=== PATIENT | female | born 1955 | race Caucasian/White ===

== ENCOUNTER 2017-09-13 11:31 | Inpatient (IN) | payer OTHER ==
[2017-09-13] VITALS (7 sets, daily range): BP systolic 134–169; BP diastolic 66–107
[~2017-09-13] VITALS: Ht 152.4 cm; Wt 127.3 kg
--- NOTE | ~2017-09-13 | EKG ---
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
--- NOTE | ~2017-09-13 | EEG ---
[facility] [place] [address] ELECTROENCEPHALOGRAM Name: IAVN LOAIZA Room #: 216-P [facility] IN M.R.#: [id number] Admission: 09/13/17 Attend Phys: Phillip Carter MD Discharge: Date of : 59 Report #: [id number] THIS REPORT FOR: //name// CC: Rikki Carter DATE OF SERVICE: 09/16/2017 This patient's EEG is being done for comparison with the last EEG. Background activity in this patient is about 8 Hz and 30 microvolts. The patient went to sleep that is associated with bilaterally symmetrical sleep spindle and vertex sharp waves. Photic stimulation was unremarkable. There is much improvement in the patient's triphasic waves. IMPRESSION: Continuous improvement in the patient's encephalopathy and continue improvement in the patient's triphasic waves. That will be consistent with resolving encephalopathy. Clinical correlation is recommended. Thank you very much for this referral. <ELECTRONICALLY SIGNED> By: Murray Middleton MD 09/18/17 [id number] 0648 Murray Middleton MD /nt
--- NOTE | ~2017-09-13 | EKG ---
[address] [address] ELECTROCARDIOGRAM REPORT Name: IVAN LOAIZA Room #: 246-P ADM IN M.R.#: [id number] Admission: 09/13/17 Attend Phys: Phillip Carter MD Discharge: Date of : 59 Report #: [id number] THIS REPORT FOR: //name// 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 : 1955 Requested By: Phillip Carter Order Number: [id number] MD: Jose Antonio Mccormick Measurements Intervals [place] Rate: 126 P: 59 FL: 128 QRS: 47 QRSD: 72 T: 88 QT: 316 QTc: 458 Interpretive Statements Sinus tachycardia Probable left atrial enlargement Minimal ST depression, inferior leads Compared to ECG 09/13/2017 12:42:50 ST (T wave) deviation now present Electronically Signed On 09-14-2017 9:08:11 [employer] [employer] by Jose Antonio Mccormick [email or web address] <ELECTRONICALLY SIGNED> By: Jose Antonio Mccormick MD 09/14/17907 0 0 Jose Antonio Mccormick MD /EPI
--- NOTE | ~2017-09-13 | EEG ---
[facility] [place] [address] ELECTROENCEPHALOGRAM Name: IVAN LOAIZA Room #: 246-P ADM IN M.R.#: [id number] Admission: 09/13/17 Attend Phys: Phillip Carter MD Discharge: Date of : 59 Report #: [id number] THIS REPORT FOR: //name// CC: Rikki Carter DATE OF SERVICE: 09/15/2017 This patient is being evaluated for altered mental status. EEG was done by placing the electrodes by standard 10/20 system of electrode placement. Both referential and sequential montages were used for recording. Background activity in this patient's EEG is about 6 Hz and 30 microvolts. This background activity is intermixed with what appeared to be frontally predominant triphasic waves. Some of them do appear epileptiform. Photic stimulation is unremarkable. IMPRESSION: This is a severely abnormal EEG, which is typically happen with encephalopathy. Triphasic waves and possibly epileptiform activity is present. Thank you very much for this referral. <ELECTRONICALLY SIGNED> By: Murray Middleton MD 09/15/17 1817 1146 1217 Murray Middleton MD /nt
[2017-09-13 11:58] LABS: ABSOLUTE NEUTROPHILS 7.8 thou/uL (1.4-8.2); BASOPHILS 0.5 % (0.0-2.0); EOSINOPHILS 0.3 % (0.0-3.0); HEMATOCRIT 38.6 % (37.0-47.0); HEMOGLOBIN 12.7 gm/dL (12.0-15.0); LYMPHOCYTES 24.8 % (24.0-44.0); MCH 31.8 pg (26.0-34.0); MCHC 32.9 g/dL (28.0-37.0); MCV 96.8 fL (80.0-100.0); MONOCYTES 6.8 % (1.0-8.0); PLATELET COUNT 222 thou/uL (150-400); POLYS 67.6 % (36.0-66.0); RBC 3.99 mil/uL (4.20-5.00); RDW 14.9 % (10.5-14.5); WBC 11.6 thou/uL (4.0-11.0)
[2017-09-13 12:05] LABS: CALCIUM 8.3 mg/dL (8.5-10.1); POTASSIUM 4.4 mmol/L (3.5-5.1)
[2017-09-13 12:11] LABS: ALBUMIN 2.3 g/dL (3.4-5.0); TOTAL BILIRUBIN 1.3 mg/dL (<0.1-1.0); TOTAL PROTEIN 5.6 g/dL (6.4-8.2)
[2017-09-13 12:42] LABS: URINE BILIRUBIN NEGATIVE (Negative); URINE BLOOD NEGATIVE (Negative); URINE CLARITY CLEAR; URINE COLOR YELLOW; URINE GLUCOSE-RANDOM* NEGATIVE (Negative); URINE KETONES 1+ (Negative); URINE LEUKOCYTES NEGATIVE (Negative); URINE NITRITE NEGATIVE (Negative); URINE PROTEIN (DIPSTICK) NEGATIVE (Negative); URINE SPECIFIC GRAVITY 1.015 (1.005-1.035)
[2017-09-13 12:53] LABS: AMP/METHAMP Negative (Negative); BARBITURATES Negative (Negative); BENZODIAZEPINES POSITIVE (Negative); COCAINE Negative (Negative); METHADONE Negative (Negative); OPIATES Negative (Negative); PCP Negative (Negative)
[2017-09-13 13:08] LABS: APTT 27.1 Seconds (24.5-32.8); INR 1.4; PROTIME 14.2 Seconds (9.3-11.4)
[2017-09-13 13:18] LABS: SALICYLATE < 2.8 mg/dL (2.8-20.0)
[2017-09-13] MEDS ORDERED: AMBIEN 5 MG TABL5 M1 PO (15:17)
[2017-09-13] MEDS ORDERED: OMEPRAZOLE40 MG PO (15:18)
[2017-09-13] MEDS ORDERED: OXYCODONE HCL 55 MG PO (15:18)
[2017-09-13] MEDS ORDERED: XANAX 0.5 MG0.5 MG PO (15:18)
[2017-09-13 15:20] LABS: BE(vivo) -3.3 mmol/L (-2 to +3); HCO3 18.1 mmol/L (22.0-26.0); PCO2 22.5 mmHg (35.0-45.0); PO2 102.2 mmHg (80.0-100.0); pH 7.523 (7.360-7.450); sO2 98.3 % (92.0-98.0)
[2017-09-13 20:41] LABS: BE(vivo) -2.6 mmol/L (-2 to +3); PO2 93.4 mmHg (80.0-100.0); pH 7.518 (7.360-7.450); sO2 97.9 % (92.0-98.0)
[2017-09-13 20:47] LABS: PCO2 23.9 mmHg (35.0-45.0)
[2017-09-14] VITALS (21 sets, daily range): BP systolic 127–194; BP diastolic 68–180
[2017-09-14 04:56] LABS: HEMATOCRIT 37.4 % (37.0-47.0); MCH 31.4 pg (26.0-34.0); MCV 98.2 fL (80.0-100.0); RBC 3.81 mil/uL (4.20-5.00); RDW 15.7 % (10.5-14.5); WBC 15.4 thou/uL (4.0-11.0)
[2017-09-14 05:34] LABS: ANION GAP 13 mmol/L (7-16); BUN 18 mg/dL (7-18); CALCIUM 8.1 mg/dL (8.5-10.1); CHLORIDE 111 mmol/L (98-107); CO2 20 mmol/L (21-32); CREATININE 0.9 mg/dL (0.6-1.0); GLUCOSE 130 mg/dL (74-106); POTASSIUM 3.9 mmol/L (3.5-5.1); SODIUM 144 mmol/L (136-145); TROPONIN-I < 0.04 ng/mL (<0.06)
[2017-09-14 12:49] LABS: BE(vivo) -3.1 mmol/L (-2 to +3); HCO3 18.2 mmol/L (22.0-26.0); PCO2 22.1 mmHg (35.0-45.0); PO2 110.9 mmHg (80.0-100.0); pH 7.533 (7.360-7.450); sO2 98.6 % (92.0-98.0)
[2017-09-14 21:23] LABS: % SATURATION 84 % (20-39); IRON 86 ug/dL (50-170); TIBC 102 ug/dL (250-450)
[2017-09-14 22:38] LABS: FOLIC ACID 23.4 ng/mL (8.6-58.9)
[2017-09-15] VITALS (23 sets, daily range): BP systolic 116–162; BP diastolic 63–89
[2017-09-15 04:35] LABS: HEMATOCRIT 37.2 % (37.0-47.0); MCH 31.4 pg (26.0-34.0); MCHC 32.2 g/dL (28.0-37.0); MCV 97.5 fL (80.0-100.0); RBC 3.82 mil/uL (4.20-5.00); RDW 15.2 % (10.5-14.5)
[2017-09-15 04:38] LABS: CALCIUM 7.9 mg/dL (8.5-10.1); CREATININE 0.8 mg/dL (0.6-1.0); MAGNESIUM 1.8 mg/dL (1.8-2.4); PHOSPHORUS 2.3 mg/dL (2.5-4.9); POTASSIUM 3.3 mmol/L (3.5-5.1)
[2017-09-15 05:20] LABS: BE(vivo) -4.5 mmol/L (-2 to +3); HCO3 17.3 mmol/L (22.0-26.0); PO2 88.9 mmHg (80.0-100.0); pH 7.499 (7.360-7.450); sO2 97.6 % (92.0-98.0)
[2017-09-15 05:21] LABS: PCO2 22.7 mmHg (35.0-45.0)
[2017-09-15 21:10] LABS: 25-HYDROXY TOTAL 12.8 ng/mL (30.0-100.0)
[2017-09-16] VITALS (14 sets, daily range): BP systolic 110–149; BP diastolic 63–133
[2017-09-16 00:08] LABS: HAV IgM AB (ANTI-HAV IgM) Negative (Negative); HEPATITIS B SURFACE AG Negative (Negative); HEPATITIS C VIRUS AB <0.1 (0.0-0.9)
[2017-09-16 05:16] LABS: BASOPHILS 0.2 % (0.0-2.0); EOSINOPHILS 1.2 % (0.0-3.0); HEMATOCRIT 35.8 % (37.0-47.0); HEMOGLOBIN 11.3 gm/dL (12.0-15.0); LYMPHOCYTES 29.5 % (24.0-44.0); MCH 31.7 pg (26.0-34.0); MCHC 31.6 g/dL (28.0-37.0); MCV 100.3 fL (80.0-100.0); MONOCYTES 9.9 % (1.0-8.0); PLATELET COUNT 157 thou/uL (150-400); POLYS 59.2 % (36.0-66.0); RBC 3.57 mil/uL (4.20-5.00); RDW 16.8 % (10.5-14.5); WBC 15.2 thou/uL (4.0-11.0)
[2017-09-16 05:28] LABS: ALBUMIN 1.7 g/dL (3.4-5.0); CALCIUM 7.7 mg/dL (8.5-10.1); CREATININE 0.7 mg/dL (0.6-1.0); MAGNESIUM 1.6 mg/dL (1.8-2.4); POTASSIUM 3.9 mmol/L (3.5-5.1); TOTAL BILIRUBIN 1.4 mg/dL (<0.1-1.0); TOTAL PROTEIN 4.7 g/dL (6.4-8.2)
[2017-09-17 03:50] LABS: ALBUMIN 1.8 g/dL (3.4-5.0); CREATININE 0.7 mg/dL (0.6-1.0); POTASSIUM 3.9 mmol/L (3.5-5.1); TOTAL BILIRUBIN 1.3 mg/dL (<0.1-1.0); TOTAL PROTEIN 4.8 g/dL (6.4-8.2)
[2017-09-17 04:48] LABS: HEMATOCRIT 35.1 % (37.0-47.0); HEMOGLOBIN 11.6 gm/dL (12.0-15.0); MCH 31.6 pg (26.0-34.0); MCV 95.9 fL (80.0-100.0); RBC 3.66 mil/uL (4.20-5.00); RDW 15.4 % (10.5-14.5); WBC 14.3 thou/uL (4.0-11.0)
[2017-09-17 05:16] VITALS: BP 145/78
[2017-09-17 08:08] VITALS: BP 150/70
[2017-09-17 11:21] VITALS: BP 129/88
[2017-09-17 12:12] LABS: ANTI-DNA SCREEN <1 IU/mL (0-9); ANTI-RNP <0.2 AI (0.0-0.9)
[2017-09-17 12:12] LABS: CERULOPLASMIN 9.2 mg/dL (19.0-39.0)
[2017-09-17 15:23] VITALS: BP 143/76
[2017-09-17 20:00] VITALS: BP 143/80
[2017-09-18 06:19] VITALS: BP 145/67
[2017-09-18 06:24] VITALS: BP 145/67
[2017-09-18 10:12] VITALS: BP 131/74
[2017-09-18 10:52] VITALS: BP 136/61
[2017-09-18 16:00] VITALS: BP 137/84
[2017-09-18 17:12] LABS: MITOCHONDRIAL ANTIBODY 31.6 Units (0.0-20.0)
[2017-09-18 20:30] VITALS: BP 112/54; BP 137/83
[2017-09-19 04:30] VITALS: BP 124/66
[2017-09-19 04:51] LABS: ALBUMIN 1.7 g/dL (3.4-5.0); DIRECT BILIRUBIN 0.5 mg/dL (<0.1-0.3); TOTAL PROTEIN 4.7 g/dL (6.4-8.2)
[2017-09-19 11:19] VITALS: BP 107/60
[2017-09-19 15:29] VITALS: BP 155/74
[2017-09-19 19:30] VITALS: BP 111/72
[2017-09-20 03:41] VITALS: BP 132/71
[2017-09-20 05:23] LABS: ABSOLUTE NEUTROPHILS 5.8 thou/uL (1.4-8.2); BASOPHILS 0.3 % (0.0-2.0); EOSINOPHILS 2.2 % (0.0-3.0); HEMATOCRIT 32.1 % (37.0-47.0); HEMOGLOBIN 10.7 gm/dL (12.0-15.0); LYMPHOCYTES 34.9 % (24.0-44.0); MCH 32.1 pg (26.0-34.0); MCHC 33.4 g/dL (28.0-37.0); MCV 96.1 fL (80.0-100.0); MONOCYTES 9.5 % (1.0-8.0); PLATELET COUNT 172 thou/uL (150-400); POLYS 53.1 % (36.0-66.0); RBC 3.34 mil/uL (4.20-5.00); RDW 16.1 % (10.5-14.5)
[2017-09-20 05:31] LABS: ALBUMIN 1.7 g/dL (3.4-5.0); CALCIUM 7.6 mg/dL (8.5-10.1); CREATININE 0.6 mg/dL (0.6-1.0); POTASSIUM 3.9 mmol/L (3.5-5.1); TOTAL PROTEIN 4.7 g/dL (6.4-8.2)
[2017-09-20 07:12] VITALS: BP 131/77
[2017-09-20 11:28] VITALS: BP 128/70
[2017-09-20 15:29] VITALS: BP 142/77
[2017-09-20 19:48] VITALS: BP 137/77
[2017-09-21 04:50] VITALS: BP 112/60
[2017-09-21 05:13] LABS: ABSOLUTE NEUTROPHILS 5.2 thou/uL (1.4-8.2); BASOPHILS 0.7 % (0.0-2.0); EOSINOPHILS 2.8 % (0.0-3.0); HEMATOCRIT 32.2 % (37.0-47.0); HEMOGLOBIN 10.8 gm/dL (12.0-15.0); LYMPHOCYTES 32.9 % (24.0-44.0); MCH 32.2 pg (26.0-34.0); MCHC 33.5 g/dL (28.0-37.0); MONOCYTES 11.1 % (1.0-8.0); PLATELET COUNT 173 thou/uL (150-400); POLYS 52.5 % (36.0-66.0); RBC 3.35 mil/uL (4.20-5.00); RDW 15.8 % (10.5-14.5); WBC 9.9 thou/uL (4.0-11.0)
[2017-09-21 05:24] LABS: CALCIUM 7.5 mg/dL (8.5-10.1); CREATININE 0.7 mg/dL (0.6-1.0); POTASSIUM 3.8 mmol/L (3.5-5.1)
[2017-09-21 08:10] VITALS: BP 144/72
[2017-09-21 19:13] VITALS: BP 139/74
[2017-09-22 03:21] LABS: ABSOLUTE NEUTROPHILS 3.7 thou/uL (1.4-8.2); BASOPHILS 0.5 % (0.0-2.0); EOSINOPHILS 2.9 % (0.0-3.0); HEMATOCRIT 29.7 % (37.0-47.0); HEMOGLOBIN 9.9 gm/dL (12.0-15.0); LYMPHOCYTES 38.3 % (24.0-44.0); MCH 31.9 pg (26.0-34.0); MCHC 33.4 g/dL (28.0-37.0); MCV 95.3 fL (80.0-100.0); MONOCYTES 10.1 % (1.0-8.0); PLATELET COUNT 161 thou/uL (150-400); POLYS 48.2 % (36.0-66.0); RBC 3.12 mil/uL (4.20-5.00); RDW 15.4 % (10.5-14.5); WBC 7.6 thou/uL (4.0-11.0)
[2017-09-22 03:46] LABS: ALBUMIN 1.4 g/dL (3.4-5.0); CALCIUM 7.7 mg/dL (8.5-10.1); CREATININE 0.6 mg/dL (0.6-1.0); POTASSIUM 4.3 mmol/L (3.5-5.1); TOTAL BILIRUBIN 0.8 mg/dL (<0.1-1.0); TOTAL PROTEIN 4.3 g/dL (6.4-8.2)
[2017-09-22 03:58] VITALS: BP 123/67
[2017-09-22 08:00] VITALS: BP 123/50
[2017-09-22 12:00] VITALS: BP 118/61
== END 2017-09-22 14:56 | disposition short-term general hospital (02) | DRG 441 ==
LOC: ER 11:31 → EROBS 14:22 → ICU 14:22 → 2N 09-16 15:19
PROVIDERS: Emergency Medicine; Hospitalist; Internal Medicine; Internal Medicine Endocrinology, Diabetes & Metabolism; Internal Medicine Gastroenterology; Psychiatry & Neurology Neurology; Specialist
DX: K72.90 Hepatic failure, unspecified without coma (principal); E43 Unspecified severe protein-calorie malnutrition; E72.20 Disorder of urea cycle metabolism, unspecified; Z68.43 Body mass index [BMI] 50.0-59.9, adult; E83.01 Wilson's disease; E11.9 Type 2 diabetes mellitus without complications; T40.601A Poisoning by unspecified narcotics, accidental (unintentional), initial encounter; F32.9 Major depressive disorder, single episode, unspecified; M19.90 Unspecified osteoarthritis, unspecified site; G89.29 Other chronic pain; R41.0 Disorientation, unspecified; R63.0 Anorexia; R60.1 Generalized edema; E66.9 Obesity, unspecified; F41.9 Anxiety disorder, unspecified; K76.0 Fatty (change of) liver, not elsewhere classified; K59.00 Constipation, unspecified; T40.605A Adverse effect of unspecified narcotics, initial encounter; Z79.899 Other long term (current) drug therapy; Z90.49 Acquired absence of other specified parts of digestive tract; Z80.8 Family history of malignant neoplasm of other organs or systems; Z72.89 Other problems related to lifestyle; Z98.84 Bariatric surgery status; Y92.89 Other specified places as the place of occurrence of the external cause
CPT/HCPCS: 10078; 10081